=== PATIENT | female | born 1980 | race Caucasian/White ===

== ENCOUNTER 2020-11-07 21:39 | Emergency (ER) | payer OTHER, SELFPAY ==
[2020-11-07 21:40] VITALS: BP 160/98; PULSE 85; RESP 18; TEMP 36.6; O2SAT 100; BMI 33.3
--- NOTE | 2020-11-07 21:58 | EX.ED.DYSGE1 ---
HPI History of Present Illness Chief Complaint: Abd Pain Narrative Narrative: Patient stated she developed some left lower quadrant sharp abdominal pain this evening just prior to arrival. She did Tylenol. It was continuous. She felt nauseous after she felt no flank pain or back pain. She has had remote kidney stone on the opposite side. No blood in her urine. No fevers or chills. It resolved 5 minutes ago and she is back to normal. Denies . [place] fine before it came on this evening. PFSH PFSH Home Medications vit no.[id number] [ Vitamin] 1 ea PO DAILY 10/03/16 [History Last Taken 02/02/17 22:00 1 tab] ibuprofen 800 mg PO Q8H PRN PRN #60 tablet 02/06/17 [Rx Last Taken Unknown] labetalol 200 mg PO TID #90 tab 02/06/17 [Rx Last Taken Unknown] oxycodone-acetaminophen 1 - 2 tab PO Q4H PRN PRN #30 tab 02/06/17 [Rx Last Taken Unknown] Allergy/AdvReac Type Severity Reaction Status Date / Time povidone-iodine Allergy Rash Verified 11/07/20 21:42 [From Betadine] soap [From Betadine] Allergy Rash Verified 11/07/20 21:42 hydromorphone [From Dilaudid] AdvReac Vomiting Verified 11/07/20 21:42 Social History Smoking Status: Never smoker ROS ROS ED ROS Narrative ROS General: Denies fever, chills, sweats Eyes: Denies visual changes, blurred vision, double vision ENT: Denies ear pain, rhinorrhea, sore throat Cardiovascular: Denies chest pain, palpitations, heart racing Respiratory: Denies dyspnea, cough, sputum, dyspnea on exertion, orthopnea,PND GI: Denies see HPI diarrhea, constipation, melena : Denies dysuria, hematuria, frequency Musculoskeletal: Denies myalgias, arthralgias, neck pain, back pain Skin: Denies rash, abscess, abrasions Neuro: Denies headache, weakness, paresthesia Psych: Denies depression, anxiety Endo: Denies polyuria, polydipsia, polyphagia Heme: Denies easy bruising, easy bleeding, lymphadenopathy Allergy: Denies hives, swelling EXAM Physical Exam Narrative Exam Narrative: Vital signs reviewed General: Well-nourished well-developed Head: Normocephalic atraumatic Eyes: Pupils equal round and reactive to light extraocular movements intact ENT: TMs clear no hemotympanum no trauma Neck: Nontender full range of motion Cardiovascular: Regular rate rhythm no murmurs normal S1-S2 Respiratory: No distress clear to auscultation bilaterally chest nontender Abdomen: Soft nontender nondistended normal bowel sounds no masses Back: Nontender no CVA tenderness Extremities: Nontender active range of motion ?4 extremities no trauma Skin: Normal color no trauma Neuro alert oriented cranial nerves II through XII intact normal strength sensation reflexes Const Vital Signs: 11/07/20 21:40 Temperature 97.9 F Temperature Source Temporal Pulse Rate 85 Respiratory Rate 18 Blood Pressure 160/98 H Blood Pressure Mean 118 Pulse Ox 100 Oxygen Delivery Method Room Air MDM MDM MDM Narrative Medical decision making narrative: Patient monitored in the emergency department with no symptoms. Reassured and will follow-up as an outpatient pain never came back. This could have been a gas bubble or passed kidney stone. We will follow-up as an outpatient Discharge Plan Triage Chief Complaint: Abd Pain ED Provider: Freddie Harris Dx/Rx/DC Orders Clinical Impression: Abdominal pain Instructions: ED Unknown Causes of Abdominal ... Prescriptions: No Action vit no.[id number] [ Vitamin] 1 EACH tablet 1 ea PO DAILY RF: 0 labetalol 200 MG tablet 200 mg PO TID Qty: 90 RF: 0 oxycodone-acetaminophen 1 TABLET tablet 1 - 2 tab PO Q4H PRN PRN (Reason: Pain) Qty: 30 RF: 0 ibuprofen 400 MG tablet 800 mg PO Q8H PRN PRN (Reason: Pain) Qty: 60 RF: 0 Primary Care Provider: Care Physician,No Primary Referrals: Tyshawn Marc DO [NON-STAFF] - Disposition Disposition: Home, self care
== END 2020-11-07 22:28 | disposition home or self-care (01) ==
LOC: ED 22:12
PROVIDERS: Emergency Provider Emergency Medicine
DX: R10.32 Left lower quadrant pain (principal)
CPT/HCPCS: 99282

== ENCOUNTER 2023-11-14 22:54 | Emergency (ER) | payer OTHER, SELFPAY ==
[2023-11-14 22:55] VITALS: BP 209/116; PULSE 100; RESP 16; TEMP 36.1; O2SAT 100; BMI 39.2
--- NOTE | 2023-11-14 23:41 | EX.ED.DYSGE1 ---
HPI History of Present Illness Chief Complaint: Ear Problem Informant: patient and spouse/S.O. Narrative Narrative: 43-year-old female has bad seasonal allergies, she has had significant allergic rhinitis symptoms recently for which she is occasionally taking Claritin for, she started getting a right earache tonight that is really hurting bad. She feels like she needs to pop her ear but cannot. No drainage. No recent swimming except for getting some minor amount of water in it in the bath/shower. No fevers or chills. No sore throat or odynophagia. No vertigo. [facility] Medical History (Updated 11/14/23 @ 23:[address] Malik Carlos MD) Seasonal allergies Home Medications ?Medication ?Instructions ?Recorded ?Last Taken ?Type amoxicillin 875 mg-potassium 875 mg PO Q12H #20 TABLETS 11/14/23 Unknown Rx clavulanate 125 mg tablet Allergy/AdvReac Type Severity Reaction Status Date / Time povidone-iodine (From Allergy Rash Verified 11/14/23 22:56 Betadine) soap (From Betadine) Allergy Rash Verified 11/14/23 22:56 hydromorphone (From Dilaudid) AdvReac Vomiting Verified 11/14/23 22:56 oxycodone AdvReac Other Verified 11/14/23 22:56 Social History Smoking Status: Never smoker ROS ROS ED Constitutional Constitutional ED: Denies chills or fever(s) Eyes Eyes: Denies change in vision or discharge from eye(s) ENT ENT ED: Reports as per HPI, ear pain right, nasal congestion and rhinorrhea; Denies discharge from eye(s) Gastrointestinal Gastrointestinal: Denies nausea or vomiting EXAM Physical Exam Const Vital Signs: 11/14/23 22:55 Temperature 97 F L Temperature Source Temporal Pulse Rate 100 Respiratory Rate 16 Blood Pressure 209/116 H Blood Pressure Mean 147 Pulse Ox 100 Positive well nourished and well developed Constitutional Narrative: Holding her urine pain but no distress General Appearance ED: well developed and NAD HEENT Reports moist mucous membranes HEENT Narrative: No oral mucous membrane lesions. Posterior pharynx clear and normal. Right TM erythematous, the distal part of the canal is a little erythematous but not tender. There is no discomfort with manipulating the pinna on the right and no EAC swelling/edema or discharge. No perforation of the TM. Light reflex is intact. The left TM and EAC are normal without any erythema, there is asymmetry there. There is no periauricular lymphadenopathy. Eyes PERRL and EOMs intact bilaterally Neck no lymphadenopathy and supple Resp normal respiratory effort MDM MDM MDM Narrative Medical decision making narrative: Reassured, likely otitis media requiring antibiotics due to her seasonal allergies. She has Claritin-D at home which I advised taking, as well as antibiotic which was started on here. Her blood pressure is very high this may be because she is in pain and advised to follow-up with her recheck. Discharge Plan Triage Chief Complaint: Ear Problem ED Provider: Malik Carlos Dx/Rx/DC Orders Clinical Impression: Acute right otitis media, Allergic rhinitis, Episode of hypertension Instructions: ED Otitis Media Adult Prescriptions: New amoxicillin-pot clavulanate 875-125 mg tablet 875 mg PO Q12H Qty: 20 0RF Primary Care Provider: Tyshawn Marc Referrals: Tyshawn Marc DO [Primary Care Provider] - (Follow-up at some point for reevaluation and recheck of your blood pressure) Print Language: Zambian Disposition Disposition: Home, Self Care
[2023-11-14] MEDS: traMADol 50 MG Tablet PO (23:52)
[2023-11-14] MEDS: Amox/Clavulanate 875 MG Tablet PO (23:52)
[2023-11-14 23:55] VITALS: BP 170/65; PULSE 88; RESP 16; TEMP 36.1; O2SAT 100
== END 2023-11-14 23:58 | disposition home or self-care (01) ==
PROVIDERS: Emergency Provider Emergency Medicine; PCP Student in an Organized Health Care Education/Training Program; Visit Provider Emergency Medicine
DX: H66.91 Otitis media, unspecified, right ear (principal); J30.9 Allergic rhinitis, unspecified; I10 Essential (primary) hypertension
CPT/HCPCS: 99283

== ENCOUNTER 2025-01-12 01:33 | Emergency (ER) | payer OTHER, SELFPAY ==
[2025-01-12 01:34] VITALS: BP 230/116; PULSE 109; RESP 18; TEMP 37.3; O2SAT 100; BMI 40.8
[2025-01-12 01:38] VITALS: PULSE 111; RESP 11; O2SAT 100
--- NOTE | 2025-01-12 01:43 | EDS_ITS ---
HPI History of Present Illness Chief Complaint: Hypertension Informant: patient and spouse/S.O. Narrative Narrative: 44-year-old female woke up with a bad headache, she states she did not want to move and did not feel like she could walk because of that but no other symptoms such as weakness or numbness. No changes in her vision. No nausea or vomiting. She states she feels a little sinus pressure/congestion but the only medicines that she took tonight after waking up like this was ibuprofen. It was not helping so she checked her blood pressure and it was over 200 so they present to the emergency department. She recently saw PCP for the first time in a long time, and although at that time within the last week or 2 that she had been evaluated and had no headache or other symptoms, her blood pressure was in the 180s so they started her on hydralazine 25 mg twice daily, and she was just prescribed another antihypertensive that has not been picked up yet. She took an extra 2 hydralazine tablets prior to coming here, 50 mg. She denies taking any other [id number] medications. [facility] Medical History HTN (hypertension) Seasonal allergies Home Medications ?Medication ?Instructions ?Recorded ?Last Taken ?Type hydralazine 25 mg tablet 25 mg PO BID PRN PRN HTN Unknown History Allergy/AdvReac Type Severity Reaction Status Date / Time povidone-iodine (From Allergy Rash Verified 01/12/25 01:40 Betadine) soap (From Betadine) Allergy Rash Verified 01/12/25 01:40 hydromorphone (From Dilaudid) AdvReac Vomiting Verified 01/12/25 01:40 oxycodone AdvReac Other Verified 01/12/25 01:40 Social History Smoking Status: Never smoker ROS ROS ED Constitutional Constitutional ED: Denies chills or fever(s) Eyes Eyes: Denies blurry vision, change in vision or diplopia ENT ENT ED: Reports headache(s) and nasal congestion; Denies rhinorrhea or sore throat Cardiovascular Cardiovascular: Denies chest pain or palpitations Respiratory/Chest Respiratory/Chest: Denies cough or dyspnea Gastrointestinal Gastrointestinal: Denies abdominal pain, diarrhea, nausea or vomiting Genitourinary Genitourinary ED: Denies dysuria or hematuria Musculoskeletal Musculoskeletal: Denies back pain or neck pain Integumentary Denies abscess or rash Neurologic Neurologic: Reports headache(s); Denies paresthesias or weakness Psychiatric Psychiatric: Reports anxiety; Denies suicidal thoughts EXAM Physical Exam Const Vital Signs: 01/12/25 01:34 01/12/25 01:38 01/12/25 01:38 Temperature 99.1 F Temperature Source Oral Pulse Rate 109 H 111 H Respiratory Rate 18 11 L Respiratory Pattern Normal Blood Pressure 230/116 H Blood Pressure Mean 154 Pulse Ox 100 100 Oxygen Delivery Method Room Air Room Air 01/12/25 01:53 01/12/25 02:26 Temperature Temperature Source Pulse Rate 88 Respiratory Rate 15 Respiratory Pattern Blood Pressure 185/95 H 177/104 H Blood Pressure Mean 125 128 Pulse Ox 100 Oxygen Delivery Method Room Air Positive well nourished and well developed General Appearance ED: well developed and NAD HEENT Reports moist mucous membranes normocephalic and atraumatic Eyes PERRL and EOMs intact bilaterally Neck full ROM and supple Chest Wall Chest Narrative: Splotchy nonraised nontender erythema that blanches across upper chest wall and anterior neck Resp normal respiratory effort and clear to auscultation bilaterally Resp Narrative: No stridor or hoarseness or distress Cardio regular rate, regular rhythm and no murmurs Rate: tachycardic GI non-tender and non-distended Auscultation: normoactive bowel sounds Palpation: soft Back/Spine no CVA tenderness General Back: other FROM Extremity normal to inspection General Extremety ED: Negative for edema, pulses abnormal or tenderness General Extremity: Negative for edema or pulses abnormal Neuro oriented x3, CN's II-XII intact bilaterally and no sensory deficits noted Sensorium / Orientation: awake and alert Motor Exam: strength 5/5 throughout Psych Mood & Affect: anxious and tearful Skin no rashes or lesions noted and no wounds MDM MDM MDM Narrative Medical decision making narrative: Basic labs and a CT of the head were obtained while we gave the patient IV labetalol for blood pressure 230/116 since she is having symptoms. This brought her pressure down to the 170s, and her headache was almost completely resolved she felt much better. She still had a little bit of pressure behind her right eye. No known history of migraines. I performed a CT of the head, it shows no acute subarachnoid hemorrhage or other acute abnormality, and labs are normal including renal function. I think with the timeframe being a couple hours with a negative CT, I do not think she requires a CTA to look for an aneurysm, nor an LP to look for an occult subarachnoid hemorrhage at this time. She is feeling much better at this time but they were apprehensive about going home due to concerns about her blood pressure spiking again so I told them perfectly reasonable to observe her for several hours if they wanted in the ER. After about 30 or 45 minutes, her blood pressure had a reading of about 190 and then came down to the 170s again and she is feeling fine and prefers to go home which I think is reasonable. 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 Turns out she is only been on the hydralazine for about 3 days. I recommend close outpatient follow-up and we discussed reasons to return to comfortable with that plan. Lab Data Attestation: I reviewed the patient's lab results. Labs: Laboratory Results - last 24 hr 01/12/25 01:40 WBC 10.8 RBC 4.92 Hgb 14.6 Hct 42.1 MCV 85.6 MCH 29.7 MCHC 34.7 RDW Std Deviation 41.2 RDW Coeff of Princess 13.2 Plt Count 367 MPV 8.9 Immature Gran % (Auto) 0.400 Neut % (Auto) 56.8 Lymph % (Auto) 31.5 [place] % (Auto) 9.3 Eos % (Auto) 1.3 Baso % (Auto) 0.7 Absolute Neuts (auto) 6.1 Absolute Lymphs (auto) 3.39 Nucleated RBC % 0 Sodium 140 Potassium 3.5 Chloride 104 Carbon Dioxide 22.8 Anion Gap 13 BUN 12 Creatinine 0.77 Estim Creat Clear Calc 114.10 Est GFR (MDRD) Non-Af 98 BUN/Creatinine Ratio 16.0 Glucose 93 Calcium 9.4 Radiography Diagnostic Testing: Clinical Impression(s) from Imaging Studies Brain CT 01/12/25 02:02 IMPRESSION: No intracranial findings Reading Location: [place] [address] Rhythm Strip Rhythm Strip: Sinus Tach Rate: 111 Ectopy: None Discharge Plan Triage Chief Complaint: Hypertension ED Provider: Malik Carlos Dx/Rx/DC Orders Clinical Impression: Accelerated hypertension, Acute headache Instructions: ED High Blood Pressure Hypertension Prescriptions: No Action hydralazine 25 mg tablet 25 mg PO BID PRN PRN (Reason: HTN) Primary Care Provider: Tyshawn Marc Referrals: Tyshawn Marc DO [Primary Care Provider] - 3-5 Days Print Language: Telugu Disposition Disposition: Home, Self Care
[2025-01-12 01:48] LABS: Hematocrit 42.1 % (37-47); Hemoglobin 14.6 g/dL (12.0-15.0); Immature Granulocytes Count 0.040 X10^3/uL (0.0-0.0); Mean Corp Hgb Conc 34.7 g/dL (32-36); Mean Corpuscular Volume 85.6 fL (81-99); Mean Platelet Vol. 8.9 fl (6.2-12.0); NRBC Flagged by Analyzer 0 % (0-5); Platelet Count 367 K/mm3 (150-450); RBC Distribution Width CV 13.2 % (11.6-14.6); RBC Distribution Width SD 41.2 fl (35.1-43.9); Red Blood Count 4.92 M/mm3 (4.2-5.4); White Blood Count 10.8 K/mm3 (4.4-11.0)
[2025-01-12 01:53] VITALS: BP 185/95
--- NOTE | 2025-01-12 02:02 | CT_ITS ---
PROCEDURE: BRAIN/HEAD WITHOUT CONTRAST 01/12/2025 REASON FOR EXAM: SEVERE HEADACHE TECHNIQUE: BRAIN/HEAD WITHOUT CONTRAST Coronal and Sagittal reconstruction series were provided. One or more dose reduction techniques were used (e.g., Automated exposure control, adjustment of the mA and/or kV according to patient size, use of iterative reconstruction technique. RADIATION DOSE SUMMARY: CTDlvol: 45 mGy DLP: 813 mGycm COMPARISON: No FINDINGS: No abnormal brain densities. No intracranial hemorrhage. No hydrocephalus or midline shift. No acute scalp or skull pathology. Unremarkable orbits. Clear sinuses, mastoid air cells, middle ear cavities. CT/Brain/Head without Contrast IMPRESSION: No intracranial findings Reading Location: [place] [address]
[2025-01-12 02:05] LABS: Anion Gap 13 (5-15); BUN 12 mg/dL (4-19); BUN/Creat Ratio 16.0 RATIO (10-20); Calcium,Total 9.4 mg/dL (7.6-11.0); Carbon Dioxide 22.8 mmol/L (21.0-32.0); Chloride 104 mmol/L (98-108); Estimated Creatinine Clearance 114.10 ml/min (50-250); Glucose 93 mg/dL (70-99); Potassium 3.5 mmol/L (3.3-5.1)
[2025-01-12 02:26] VITALS: BP 177/104; PULSE 88; RESP 15; O2SAT 100
[2025-01-12 03:03] VITALS: BP 173/100; PULSE 90; RESP 18; TEMP 36.6; O2SAT 98
== END 2025-01-12 03:10 | disposition home or self-care (01) ==
PROVIDERS: Emergency Provider Emergency Medicine; PCP Student in an Organized Health Care Education/Training Program; Visit Provider Emergency Medicine
DX: I10 Essential (primary) hypertension (principal); R51.9 Headache, unspecified; Z79.899 Other long term (current) drug therapy; F41.9 Anxiety disorder, unspecified
CPT/HCPCS: 70450; 80048; 85025; 96374; 99283; A4216